=== PATIENT | male | born 1945 | race Caucasian/White ===

== ENCOUNTER 2016-10-01 10:05 | Day surgery (SDC) | payer MEDICARE ==
[~2016-10-01 10:05] MED LIST: 0.9% Sodium Chloride 1,000 ML IV SCH; Sodium Chloride LOK Flush 10 mL Syringe IV PRN; fentaNYL-PF 50 mCg/mL 2 mL Inj IVPUSH PRN
[2016-10-01 10:38] VITALS: BP 107/69; PULSE 92; RESP 17; O2SAT 95
[2016-12-13] MEDS ORDERED: METO25TA6 PO (10:57)
== END 2016-10-01 23:59 | disposition home or self-care (01) ==
LOC: END 10:05 → EDUNIT# 11:15 → END 23:59
PROVIDERS: ATTEND Internal Medicine Gastroenterology
DX: Z86.010 Personal history of colon polyps (principal); R00.0 Tachycardia, unspecified; Z53.09 Procedure and treatment not carried out because of other contraindication

== ENCOUNTER 2016-12-14 12:09 | Day surgery (SDC) | payer MEDICARE ==
[~2016-12-14] VITALS: Ht 179.1 cm; Wt 77.1 kg
--- NOTE | 2016-12-14 07:10 | PCM.HPANE ---
Patient Data Surgeon Admitting Provider: Attending Provider:Alexis Li MD Primary Care Physician:Silvino Squires MD Other Provider:[facility] Reason for Visit Hx Of Colonic Polyps Ht/WT & BMI Body Mass Index Allergies Coded Allergies: procaine (Verified Allergy, Severe, HYPOTENSION, 10/01/16) Sulfa (Sulfonamide Antibiotics) (Verified Allergy, Mild, RASH, 09/30/16) Past Anesthesia History Anesthesia History: Denies:: Abnormal Airway, Anesthesia Reactions, Difficult Intubation, Fam Anesthesia Reaction, Fam Malignant Hypertherm, Malignant Hyperthermia Medications Reported Medications Warfarin Sodium (Coumadin)7.5 Mg Tablet7.5 Mg PO DAILY 30 Days Ref 0 12/14/16 Pravastatin 10 Mg [id number] Mg PO HS Ref 0 12/14/16 Losartan Potassium 25 Mg [id number] Mg PO 12/14/16 Metoprolol Tartrate 25 Mg [id number] Mg PO BID 30 Days Ref 0 12/13/16 History History of ENT Problems?: No HEENT History: Denies:: Abnormal Airway Cataracts Difficult Intubation Dysphagia Glaucoma Hearing Problem Sinus Problem TMJ Denture Type: None Teeth Condition: Within Normal Limits Hx of Heart Problems?: Yes Cardiovascular History: Positive for:: Irregular Heartbeat Hx of Respiratory Problem?: No Respiratory History: Denies:: Asthma COPD Chest Surgery Cough Dyspnea Emphysema Hemoptysis Oxygen Administration Pneumonia Pulmonary Embolism Tuberculosis Use of C-PAP Machine Use of Inhalers / NEBS Hx Neurologic Problems?: No Neurological History: Denies:: Alzheimer's Disease CVA Dementia Dizziness Headaches Multiple Sclerosis Parkinson's Disease Peripheral Neuropathy Seizures TIA Hx of GI Problems?: Yes Gastrointestinal History: Positive for:: Gastroesphageal Reflux Hx of Problems?: No Genitourinary History: Denies:: HX of Hemodialysis Kidney Stones Urinary Tract Infection Hx Musculoskeletal Problems?: No Musculoskeletal History: Denies:: Back Injury Degenerative Joint Fibromyalgia Joint Replacement Musculoskeletal Trauma Myasthenia Gravis Osteoarthritis Rheumatoid Arthritis Systemic Lupus Hx of Psycho/Social Problems?: No Psycho Social History: Denies:: Anxiety Bipolar Disorder Hx Depression Suicide Attempt Hx Surgeries?: No Hx Any Other Health Problems?: No Hx Diabetes: No Stop/Bang AYANNA Risk Assessment: Low Risk, <3 Yes Risk Assessment Category Category 1A: Patient has history of documented sleep apnea, and HAS NOT received any narcotic, sedative or anesthesia administration during this stay. Category 1B: Patient has history of documented sleep apnea, and HAS received any narcotic , sedative or anesthesia administration during this stay Category 2: Patient has SUSPECTED Obstructive Sleep Apnea, and HAS received any narcotic , sedative or anesthesia administration during this stay. Category 3: Patient has SUSPECTED Obstructive Sleep Apnea and HAS NOT received narcotic, sedative or anesthesia administration during this stay. Category 4: Outpatient in Procedural Areas with known sleep apnea or who screen positive for High Risk via the STOP/BANG questionnaire. Exam Exam General Appearance: Alert, Oriented X3, Cooperative, No Acute Distress HEENT/AIRWAY: MP 2 Lungs: Clear to Auscultation, Normal Air Movement Heart: Exam Unremarkable, Regular Rate/Rhythm, No Murmurs/Rubs/Gallops Plan Impression Patient chart reviewed, patient interviewed and anesthestic plan with risks, benefits, and alternatives discussed, and informed consent obtained. NPO per Anesth. Guidelines: Yes ASA Physical Status: ASA2 Mod Systemic Disease Anesthetic Plan: MAC Bene/Risks/Altern/Consents: Yes HP Complete Prior to Induction: Yes Sandeep Tellez MD Dec 14, 2016 07:10
[~2016-12-14 12:09] MED LIST changes: -0.9% Sodium Chloride 1,000 ML IV SCH; +Lactated Ringer's 1,000 ML IV ONE; +METO25TA6 PO; -Sodium Chloride LOK Flush 10 mL Syringe IV PRN; -fentaNYL-PF 50 mCg/mL 2 mL Inj IVPUSH PRN
[2016-12-14] MEDS ORDERED: fentaNYL-PF 50 mCg/mL 2 mL Inj ONE (12:10)
[2016-12-14] MEDS ORDERED: Propofol 10,000 mCg/mL 20 mL Inj ONE (12:10)
[2016-12-14 12:26] VITALS: BP 126/73; PULSE 73; RESP 15; O2SAT 92
[2016-12-14] MEDS ORDERED: WARF7.5T PO (12:36)
[2016-12-14] MEDS ORDERED: PRAV10TA2 PO (12:36)
[2016-12-14] MEDS ORDERED: LOSA25TA21 PO (12:36)
[2016-12-14] MEDS ORDERED: Lactated Ringer's 1,000 ML IV SCH (13:04)
--- NOTE | 2016-12-14 13:04 | PCM.ANEP1 ---
Post Anesthesia Phase 1 PACU Phase 1 Assessment Vital Signs Vital Signs Date Time Temp Pulse Resp B/P Pulse Ox O2 Delivery O2 Flow Rate FiO2 12/14/16 12:26 36.8 73 15 126/73 92 Room Air Anesthetic Administered: MAC Level of Alertness: Awake, talking ADAMS's with Equal Strength: Yes Pain: No Nausea or Vomiting: No Cardiovascular Function and Hy: Yes Lungs: Clear to Auscultation, Normal Air Movement Sandeep Tellez MD Dec 14, 2016 13:04
[2016-12-14] MEDS ORDERED: MetoCLOpramide 5 mg/mL 2 mL Inj IVPUSH PRN (13:05)
[2016-12-14] MEDS ORDERED: Ondansetron 2 mg/mL 2 mL Inj IVPUSH PRN (13:05)
[2016-12-14 13:09] VITALS: BP 109/63; PULSE 60; RESP 16; O2SAT 95
[2016-12-14 13:19] VITALS: BP 104/62; PULSE 60; RESP 16; O2SAT 96
[2016-12-14 13:24] VITALS: BP 104/64; PULSE 59; RESP 16; O2SAT 93
--- NOTE | 2016-12-14 20:46 | ENDO ---
[address] [address] ENDOSCOPY PROCEDURE PATIENT: ABRIL ZENG : 1945 MR#: [id number] ADMIT: 12/14/2016 JOB ID: [id number] DATE OF SERVICE: 12/14/2016 OPERATION: Colonoscopy with biopsy. PREOPERATIVE DIAGNOSIS(ES): History of colon polyps. POSTOPERATIVE DIAGNOSIS(ES): 1. A 2 mm ascending colon polyp, removed by cold biopsy forceps. 2. Small internal hemorrhoids. ANESTHESIA: Monitored anesthesia care. COMPLICATION: None. BLOOD LOSS: Minimal. DESCRIPTION OF PROCEDURE: After risks and benefits were explained to the patient, informed consent was obtained. After anesthesia administered, colonoscope was then inserted from the rectum to the cecum. Mucosa carefully examined. Prep of the patient was excellent. After procedure was done, the scope withdrawn and procedure terminated. FINDINGS: On inspection of the anus, no masses, hemorrhoids, ulcers, or fissures that were seen. Throughout the entire examination, there was a 2 mm ascending colon polyp, removed by cold biopsy forceps. No other polyps or masses were seen. Retroflexion showed small internal hemorrhoids. IMPRESSION: 1. Small internal hemorrhoids. 2. A 2 mm ascending colon polyp, removed by cold biopsy forceps. RECOMMENDATION: Await pathology results. Repeat colonoscopy in five years given the history.
--- NOTE | 2016-12-15 10:02 | PATH ---
SURGICAL PATHOLOGY Attending Physician:Alexis Li MD CASE STATUS: Signed Out PATIENT NAME: ABRIL ZENG PID: [id number] : 1945 DATE COLLECTED:12/14/2016 22:00 SPECIMEN: Colon, Biopsy CLINICAL HISTORY: 1). ASCENDING COLON POLYP FINAL DIAGNOSIS: Ascending Colon, Polyp, Biopsy: Tubular adenoma; negative for high-grade dysplasia. ICD10: K63.5 GROSS DESCRIPTION: The specimen is received in one formalin filled container labeled with the patient's name, sublabeled "ascending colon polyp" and consists of a 0.3 x 0.3 x 0.3 CM portion of tissue which is entirely submitted in one cassette. 12/14/2016 [facility] ICD-9 CODES: CPT CODES: 1: 28186 Electronically Signed Out Sarah Kelly MD [facility]ly [facility] Pathology [facility], [place] [address] Technical component performed at [facility], [address] [place] [address] Ave[address], [place], [address]
== END 2016-12-14 23:59 | disposition home or self-care (01) ==
LOC: END 12:09
PROVIDERS: ATTEND Internal Medicine Gastroenterology
DX: Z12.11 Encounter for screening for malignant neoplasm of colon (principal); Z86.010 Personal history of colon polyps; D12.2 Benign neoplasm of ascending colon; K64.8 Other hemorrhoids; I10 Essential (primary) hypertension; I47.1 Supraventricular tachycardia; K21.9 Gastro-esophageal reflux disease without esophagitis; E78.00 Pure hypercholesterolemia, unspecified; M19.90 Unspecified osteoarthritis, unspecified site; N40.0 Benign prostatic hyperplasia without lower urinary tract symptoms; Z79.01 Long term (current) use of anticoagulants; Z86.718 Personal history of other venous thrombosis and embolism; Z86.711 Personal history of pulmonary embolism; Z87.891 Personal history of nicotine dependence
CPT/HCPCS: 45380; 88305; J2250; J3010; J7120